=== PATIENT | female | born 1955 | race Caucasian/White ===

== ENCOUNTER 2019-09-09 17:30 | Emergency (ER) | payer BC, SELFPAY ==
--- NOTE | ~2019-09-09 | XR_ITS ---
EXAMINATION: XR chest 2V 09/09/2019 17:47 INDICATION: Status post fall. Left rib pain. PROCEDURE: PA and lateral views of the chest COMPARISON: Comparison to multiple prior studies sequentially, with oldest reviewed study dated 07/13. FINDINGS: The lungs are clear. The cardiomediastinal silhouette is within normal limits. There are no pleural effusions. There is no pneumothorax suspected. IMPRESSION: 1: NO ACUTE CARDIOPULMONARY DISEASE. Reviewed, dictated and finalized at location A. E DRILLER HELPER
--- NOTE | 2019-09-09 17:38 | ED.FALL ---
HPI - Fall General Chief Complaint: Fall Stated Complaint: FALL/RIB PAIN Time Seen by Provider: 09/09/19 17:38 Source: patient and RN notes reviewed Mode of arrival: ambulatory Limitations: no limitations History of Present Illness HPI Narrative: Pt is a 64 y/o female who presents rib pain secondary to a fall. 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 Pt reports pain to her lt ribs, She states that she has a H/O asthma and she gets pain to her posterior ribs when she takes a deep breath. Pt takes ASA 81mg daily. She denies any anticoagulants, other injuries, and mentions she has enough pain medicines at home MD complaint: fall Onset (ago): hour(s) (this morning) Fall from: standing Place fall occurred: home Context: tripped/slipped Location of injury: other (lt ribs) Associated symptoms (after fall): denies Related Data Home Medications Medication Instructions Recorded Confirmed albuterol sulfate 90 mcg/actuation 1 inhalation INHALATION Q4H 06/24/19 09/09/19 aerosol inhaler alprazolam 0.25 mg tablet 0.25 mg PO TID 06/24/19 calcium carbonate 500 mg calcium 500 mg PO DAILY 06/24/19 (1,250 mg) tablet furosemide 20 mg tablet 20 mg PO QAM 06/24/19 lorazepam 0.5 mg tablet 0.5 mg PO TID PRN tablet 06/24/19 melatonin 5 mg tablet 5 mg PO DAILY tablet 06/24/19 metformin 500 mg tablet,extended 1,000 mg PO QPM tablet 06/24/19 release 24 hr montelukast 10 mg tablet 10 mg PO DAILY 06/24/19 omeprazole 20 mg capsule,delayed 20 mg PO DAILY 06/24/19 release ondansetron HCl 4 mg tablet 4 mg PO Q8H 06/24/19 oxycodone 5 mg tablet 5 mg PO Q4H PRN 06/24/19 trazodone 150 mg tablet 150 mg PO .QHS tablet 06/24/19 venlafaxine 150 mg 150 mg PO DAILY 06/24/19 capsule,extended release 24 hr zolpidem 5 mg tablet 5 mg PO ONCE 11/14/19 Allergies Allergy/AdvReac Type Severity Reaction Status Date / Time vancomycin Allergy Severe kidney Unverified 09/09/19 17:41 failure Quinolones Allergy Mild Unknown Verified 09/09/19 17:41 adhesive Allergy Unknown skin Verified 09/09/19 17:41 irritation levofloxacin Allergy Unknown shortness Verified 09/09/19 17:41 of breath Sulfa (Sulfonamide Allergy Unknown Hallucinati Verified 09/09/19 17:41 Antibiotics) ons Review of Systems Review of Systems: Narrative: General/Constitutional: No weight loss,fever Eyes: N0: Redness,discharge Ears/Nose/Throat: No: Epistaxis,ear discharge Respiratory: Denies: Hemoptysis Gastrointestinal: No Vomiting, Bleeding-rectal Skin: No Lumps, eruption Neurologic: No Focal Weakness,Sz Hematologic: Denies: Petechiae/Purpura Psychiatric: No: Suicida ideationl All Other Systems: Reviewed and Negative [facility] [place] Past Medical History Medical History (Updated 09/09/19 @ 18:26 by Ramana Guerra MD) Benign colon polyp Family History Family History (Updated 12/29/18 @ 08:30 by DOCTOR UNKNOWN) Grandparent Diabetes mellitus, Onset Age: 83 Hypertension Acute myocardial infarction, Onset Age: 80 Family history of malignant neoplasm Mother Hypertension, Onset Age: 79 Family history of diabetes mellitus in first degree relative Diabetes mellitus, Onset Age: 79 Family history of Alzheimer's disease, Onset Age: 79 Sibling Hypertension Patient's brother is Father Cerebrovascular accident Social History Social History Smoking status: Never smoker Second hand tobacco smoke exposure: No Alcohol intake: never Comments At time of signature, agree with nursing past medical, surgical, social and family history. There is no relevant family history pertinent to the presenting complaint Exam Narrative: Exam Narrative: General Appearance: Well appearing, No distress EYE: PERRLA, Conjunctiva clear Ears: External ear normal N
[2019-09-09 18:00] VITALS: BP 135/78; PULSE 95; RESP 16; TEMP 36.4; O2SAT 98
== END 2019-09-09 18:29 | disposition home or self-care (01) ==
PROVIDERS: Emergency Provider Emergency Medicine; PCP Family Medicine
DX: R07.89 Other chest pain (principal); J45.909 Unspecified asthma, uncomplicated; W19.XXXA Unspecified fall, initial encounter; Z79.82 Long term (current) use of aspirin
CPT/HCPCS: 71046; 99213; G0463

== ENCOUNTER 2020-08-08 15:08 | Outpatient (CLI) | payer BC, SELFPAY ==
--- NOTE | ~2020-08-08 | XR_ITS ---
XR chest 2V DATE: 08/08/2020 15:25 INDICATION: Cough. Covid infection 1 month ago. Hypertension history. TECHNIQUE: PA and lateral views COMPARISON: 09/09/2019 PA and lateral chest FINDINGS: Normal heart size. Aortic arch calcification. No hilar or mediastinal enlargement. No pulmonary infiltrate or consolidation, pleural effusion or pulmonary vascular congestion or pneumo thorax. IMPRESSION: No active cardiopulmonary disease Reviewed, dictated and finalized at location A. ACER OPERATOR
== END 2020-08-08 15:09 | disposition home or self-care (01) ==
PROVIDERS: PCP Family Medicine; Visit Provider Family Medicine
DX: Z09 Encounter for follow-up examination after completed treatment for conditions other than malignant neoplasm (principal); U07.1 COVID-19; R05 Cough; I70.0 Atherosclerosis of aorta
CPT/HCPCS: 71046

== ENCOUNTER 2020-11-26 11:58 | Emergency (ER) | payer BC, SELFPAY ==
[2020-11-26 12:22] VITALS: BP 163/87; PULSE 88; RESP 16; TEMP 36.7; O2SAT 98
[2020-11-26 12:32] VITALS: BP 163/87; PULSE 88; RESP 16; TEMP 36.7; O2SAT 98
--- NOTE | 2020-11-26 12:51 | ED.URI ---
HPI - URI/Sore Throat General Chief Complaint: Upper Respiratory Infection Stated Complaint: sinus issues/tightness in chest/cough/sore throat Time Seen by Provider: 11/26/20 12:38 Source: patient and RN notes reviewed Mode of arrival: ambulatory Limitations: no limitations History of Present Illness HPI Narrative: Patient presents today with a 5-day history of, nasal congestion and sinus pressure, bilateral ear pain, sore throat, headache, intermittent productive cough, intermittent shortness of breath. History of asthma and diabetes. She has been taking Mucinex and Tylenol without relief. History of COVID-19 in July. She has been Covid vaccinated since October. MD elicited complaint: cough, sore throat, nasal congestion and sinus pain Related Data Home Medications Medication Instructions Recorded Confirmed calcium carbonate 500 mg calcium 500 mg PO DAILY 06/24/19 11/26/20 (1,250 mg) tablet melatonin 5 mg tablet 5 mg PO DAILY tablet 06/24/19 11/26/20 omeprazole 20 mg capsule,delayed 20 mg PO DAILY 06/24/19 11/26/20 release carvedilol 12.5 mg tablet 12.5 mg PO Q12H 02/18/20 11/26/20 pravastatin 40 mg tablet 40 mg PO DAILY 08/16/20 11/26/20 Lactobacillus rhamnosus GG 1 cap PO DAILY 11/26/20 11/26/20 [Culturelle] ascorbic acid (vitamin C) 1 g PO DAILY 11/26/20 11/26/20 cholecalciferol (vitamin D3) 100 mcg PO DAILY 11/26/20 11/26/20 [Vitamin D3] magnesium 100 mg PO USEASDIRECTD 11/26/20 11/26/20 metformin 1,500 mg PO HS 11/26/20 11/26/20 mirabegron [Myrbetriq] 50 mg PO HS 11/26/20 11/26/20 Allergies Allergy/AdvReac Type Severity Reaction Status Date / Time vancomycin Allergy Severe kidney Unverified 09/09/19 17:41 failure Quinolones Allergy Mild Unknown Verified 09/09/19 17:41 adhesive Allergy Unknown skin Verified 09/09/19 17:41 irritation levofloxacin Allergy Unknown shortness Verified 09/09/19 17:41 of breath Sulfa (Sulfonamide Allergy Unknown Hallucinati Verified 09/09/19 17:41 Antibiotics) ons Review of Systems Review of Systems: Narrative: CONSTITUTIONAL: Denies body aches, fever, chills, or sweats. EYES: Denies visual changes, redness, or discharge. ENT: Denies rhinorrhea. + Congestion, sinus pressure bilateral ear pain, sore throat CARDIOVASCULAR: Denies chest pain, palpitations, or edema. RESPIRATORY: + Cough, shortness of breath GASTROINTESTINAL: Denies abdominal pain, nausea, vomiting, or diarrhea. GENITOURINARY: Denies dysuria or hematuria. SKIN: Denies rash, itching, or wounds. MUSCULOSKELETAL: Denies back pain, joint pain, or myalgia. NEUROLOGIC: Denies numbness, tingling, or weakness. + Headache PSYCH: Denies depression or anxiety. [facility] Past Medical History Medical History Benign colon polyp BMI 31.0-31.9,adult Body mass index (bmi) 28.0-28.9, adult (12/29/18) COVID-19 (~07/12/20) Exposure to COVID-19 virus Overactive bladder Sore throat Family History Family History Grandparent Diabetes mellitus, Onset Age: 83 Hypertension Acute myocardial infarction, Onset Age: 80 Family history of malignant neoplasm Mother Hypertension, Onset Age: 79 Family history of diabetes mellitus in first degree relative Diabetes mellitus, Onset Age: 79 Family history of Alzheimer's disease, Onset Age: 79 Sibling Hypertension Patient's brother is Father Cerebrovascular accident Social History Social History Smoking status: Never smoker Second hand tobacco smoke exposure: No Alcohol intake: never Comments At time of signature, I have reviewed and agree with nursing past medical, surgical, social and family history unless otherwise noted. Please see nursing chart for further information. There is no relevant family history pertinent to the presentin
== END 2020-11-26 12:57 | disposition home or self-care (01) ==
PROVIDERS: Emergency Provider Nurse Practitioner; PCP Family Medicine
DX: J40 Bronchitis, not specified as acute or chronic (principal); J01.90 Acute sinusitis, unspecified; Z86.16 Personal history of COVID-19; J45.909 Unspecified asthma, uncomplicated; E11.9 Type 2 diabetes mellitus without complications
CPT/HCPCS: 99213; G0463

== ENCOUNTER 2021-02-20 11:00 | Outpatient (CLI) | payer BC, SELFPAY ==
--- NOTE | 2021-03-11 18:49 | WPDHOMESLEEP ---
Sleep Study - Home Unattended Date of Study: 02/20/21 Ordering Provider: William Young MD Interpreting Provider: Angelina Callahan MD Home Sleep Study Type: Apnea Link Air Height: 1.65 m Weight: 87.09 kg Body Mass Index: 31.9 Neck Circumference (inches): 12.75 Reason for Sleep Study hypersomnolence Sleep History Marielena Rose is a 66 year old female with frequent awakenings through the night associated with leg spasms. She has a lack of overall sleep. When she wakes at night she is not able to return to sleep easily. She has used Trazodone and melatonin for years, stopped Trazodone a year ago. She has been using amitriptyline for the last month which helped her sleep but she feels tired in the morning. She occasionally awakens from sleep feeling short of breath and occasionally awakens at night with heartburn, belching or coughing. She frequently snores. She never snores loudly enough that others complain about it. She occasionally has trouble sleeping with a cold. She rarely wakes up gasping for breath at night. She occasionally has breathing problems at night observed by others. She frequently sweats excessively at night, occasionally notices her heart pounding or beating irregularly at night, rarely falls asleep during the day, rarely falls asleep involuntarily and never falls asleep while driving. She does not have loss of muscle tone was strong emotion. She does not have daytime difficulties due to excessive sleepiness. She rarely feels paralyzed on waking or falling asleep. She occasionally has vivid dreamlike scenes upon awakening or falling asleep. She is really afraid to go to sleep. She frequently has nightmares. She frequently remembers her dreams and frequently has racing thoughts. She occasionally feels sad or depressed. She frequently has anxiety, frequently has muscular tension and frequently notices parts her body jerking. She occasionally kicks at night. She frequently has crawling and aching feelings in her legs and leg pain at night. She frequently has morning jaw pain. She occasionally grinds her teeth during sleep. She constantly is bothered by pain during the day, awakened by pain at night, constantly wakes up feeling stiff in the morning with sore achy muscles and pain in the neck and spine. She has bowel disturbances, fatigue, memory problems, concentration difficulties, and she takes antacids regularly. Normal bedtime is 8:30 p.m., and the amount of time it takes to fall asleep varies. She typically wakes up 4 times at night to use the bathroom and has difficulty returning to sleep. Sometimes without sedatives that may take hours for her return to sleep. She denies taking naps in the afternoon or evening. Short naps are not refreshing. She is drowsy for 2 hours after waking. Habits: Never smoked tobacco. Caffeine 2 per day. No alcohol or recreational drugs. [facility] Past Medical History Medical History Benign colon polyp BMI 31.0-31.9,adult Body mass index (bmi) 28.0-28.9, adult (12/29/18) COVID-19 (~07/12/20) Exposure to COVID-19 virus Hypersomnia Insomnia Overactive bladder Sore throat Family History Family History Grandparent Diabetes mellitus, Onset Age: 83 Hypertension Acute myocardial infarction, Onset Age: 80 Family history of malignant neoplasm Mother Hypertension, Onset Age: 79 Family history of diabetes mellitus in first degree relative Diabetes mellitus, Onset Age: 79 Family history of Alzheimer's disease, Onset Age: 79 Sibling Hypertension Patient's brother is Father Cerebrovascular accident Social History Social History Smoking status: Never smoker Second hand tobacco smoke exposure: No Alcohol intake: never Medications Home Medications Me
[2021-03-11 18:59] VITALS: BMI 31.9
== END 2021-02-21 11:22 | disposition home or self-care (01) ==
LOC: ANHCSM 11:07
PROVIDERS: PCP Family Medicine; Visit Provider Family Medicine
DX: G47.10 Hypersomnia, unspecified (principal); G47.33 Obstructive sleep apnea (adult) (pediatric); G25.81 Restless legs syndrome
CPT/HCPCS: 95806

== ENCOUNTER 2022-10-13 12:54 | Emergency (ER) | payer MEDICARE, SELFPAY ==
[2022-10-13 13:09] VITALS: BP 133/82; PULSE 82; RESP 16; TEMP 36.3; O2SAT 99
--- NOTE | 2022-10-13 13:09 | ED.URI ---
HPI - URI/Sore Throat General Chief Complaint: Upper Respiratory Infection Stated Complaint: sore throat,ear aches Time Seen by Provider: 10/13/22 13:12 Source: patient and RN notes reviewed Mode of arrival: ambulatory Limitations: no limitations History of Present Illness HPI Narrative: 67-year-old female with history of leukemia presents with concern for sore throat, nasal congestion, sinus pain, earaches. Reports symptoms started about 2 weeks ago. She reports she has taken [id number] DayQuil and NyQuil with little relief. She denies fever, shortness breath, trauma swelling. MD elicited complaint: cough, sore throat and nasal congestion Related Data Home Medications Medication Instructions Recorded Confirmed calcium carbonate 500 mg calcium 500 mg PO DAILY 06/24/19 10/13/22 (1,250 mg) tablet melatonin 5 mg tablet 5 mg PO DAILY 06/24/19 10/13/22 omeprazole 20 mg capsule,delayed 20 mg PO DAILY 06/24/19 10/13/22 release carvedilol 12.5 mg tablet 12.5 mg PO Q12H 02/18/20 10/13/22 pravastatin 40 mg tablet 40 mg PO DAILY 08/16/20 10/13/22 Lactobacillus rhamnosus GG 10 1 cap PO DAILY 11/26/20 10/13/22 billion cell capsule (Culturelle) ascorbic acid (vitamin C) 1,000 mg 1 g PO DAILY 11/26/20 10/13/22 tablet magnesium 100 mg tablet 100 mg PO USEASDIRECTD 11/26/20 10/13/22 Medical cannabis See Rx Instructions .Route .COMPLEX 05/15/21 10/13/22 cholecalciferol (vitamin D3) 50 2,000 unit PO DAILY 05/15/21 10/13/22 mcg (2,000 unit) capsule lisinopril 10 mg tablet 10 mg PO DAILY 05/15/21 10/13/22 cyanocobalamin (vitamin B-12) 1,000 mcg PO DAILY 10/17/21 10/13/22 1,000 mcg tablet Allergies Allergy/AdvReac Type Severity Reaction Status Date / Time vancomycin Allergy Severe kidney Unverified 10/13/22 13:05 failure Quinolones Allergy Mild Unknown Verified 10/13/22 13:05 adhesive Allergy Unknown skin Verified 10/13/22 13:05 irritation levofloxacin Allergy Unknown shortness Verified 10/13/22 13:05 of breath Sulfa (Sulfonamide Allergy Unknown Hallucinati Verified 10/13/22 13:05 Antibiotics) ons Review of Systems Review of Systems: CONSTITUTIONAL: Denies malaise, chills, sweats, or fever. EYES: Denies visual changes, redness, or discharge. ENT: Reports rhinorrhea, congestion, sinus pain, otalgia and sore throat. CARDIOVASCULAR: Denies chest pain, palpitations, or edema. RESPIRATORY: Reports cough. Denies dyspnea. GASTROINTESTINAL: Denies abdominal pain, nausea, vomiting, diarrhea SKIN: Denies rash or itching. MUSCULOSKELETAL: Denies myalgia. NEUROLOGIC: Denies headache. All systems reviewed & are unremarkable except as noted in HPI and below PMFSH Past Medical History Medical History (Updated 10/13/22 @ 13:32 by Kirstin Osman NP) Benign colon polyp BMI 31.0-31.9,adult Body mass index (bmi) 28.0-28.9, adult (12/29/18) Breast cancer screening by mammogram normal mammogram on 06/18/2021. Normal mammogram 08/29/2022. Chronic pain fibromyalgia pain COVID-19 (~07/12/20) COVID-19 (~01/2022) 2nd episode, fully vaccinated Exposure to COVID-19 virus Hypersomnia Insomnia Obesity (BMI 30.0-34.9) Overactive bladder Screening for diabetic retinopathy no diabetic retinopathy or macular edema on 01/02/2022. Sore throat Vitamin B12 deficiency anemia (10/09/21) level low at 277 with goal greater than 400 on 10/09/2021 Family History Family History Grandparent Diabetes mellitus, Onset Age: 83 Hypertension Acute myocardial infarction, Onset Age: 80 Family history of malignant neoplasm Mother Hypertension, Onset Age: 79 Family history of diabetes mellitus in first degree relative Diabetes mellitus, Onset Age: 79 Family history of Alzheimer's disease, Onset Age: 79 Sibling Hypertension Patient's brother is Father Cerebrovascular accident Social History Social History (Reviewed 05/01/22 @
[2022-10-13 13:18] VITALS: BP 133/82; PULSE 82; RESP 16; TEMP 36.3; O2SAT 99
== END 2022-10-13 13:34 | disposition home or self-care (01) ==
PROVIDERS: Emergency Provider Nurse Practitioner; PCP Family Medicine
DX: J01.90 Acute sinusitis, unspecified (principal); E66.9 Obesity, unspecified; Z68.30 Body mass index [BMI] 30.0-30.9, adult; D51.9 Vitamin B12 deficiency anemia, unspecified; Z86.16 Personal history of COVID-19
CPT/HCPCS: 87081; 87880; 99213; G0463

== ENCOUNTER → 2023-03-11 10:33 | Outpatient (CLI) | payer MEDICARE, SELFPAY ==
--- NOTE | ~2023-03-11 | XR_ITS ---
AP view of the pelvis and AP and lateral views of the bilateral hips Clinical history: Pain Findings: No acute fracture or dislocation is seen. Osseous alignment is anatomic. Bilateral hip and SI joint spaces are preserved. Soft tissues are unremarkable. Impression: No significant abnormality is seen. Reviewed, dictated and finalized at location . Impression: No significant abnormality is seen.
== END ==
PROVIDERS: PCP Family Medicine; Visit Provider Family Medicine
DX: M25.551 Pain in right hip (principal); M25.552 Pain in left hip
CPT/HCPCS: 73521

== ENCOUNTER 2023-03-11 11:13 | Outpatient (CLI) | payer MEDICARE, SELFPAY ==
--- NOTE | ~2023-03-11 | CT_ITS ---
EXAMINATION: CT abdomen pelvis w con DATE: 03/11/2023 11:39 INDICATION: Acute left lower quadrant abdominal pain. TECHNIQUE: Computed tomography (CT) of the abdomen and pelvis was performed with 100 mL Omnipaque 350 intravenous contrast. Automated exposure control and iterative reconstruction technique were employe d. The dose-length product was 731.27 mGy-cm. COMPARISON: CT abdomen and pelvis 02/17/2019 FINDINGS: The visualized portions of the lung bases demonstrate mild atelectasis. No pleural effusion . The heart size is normal. No pericardial effusion. There is a chronic calcification with surroundin g low attenuation in right hepatic lobe, likely benign. There is a 7 mm cyst in the liver. There is a n 11 mm cystic lesion in the body of the pancreas, increased from 3 mm on 02/17/19. The spleen, gallbl adder, and adrenal glands are normal. There are cysts in the kidneys measuring up to 2.8 cm on the ri ght. Aortic atherosclerosis is noted. There are scattered diverticula in the colon. There is wall thi ckening of sigmoid colon with fat stranding around a diverticulum, consistent with diverticulitis. Th ere are no dilated loops of bowel. The appendix is normal. There are no pathologically enlarged lymph nodes. There is no free intraperitoneal fluid. There is severe lower lumbar spondylosis. IMPRESSION: 1. Acute sigmoid diverticulitis. No perforation or abscess. 2. 11 mm cystic lesion of the pancreas, worsened from 02/17/19. The differential diagnosis includes ps eudocyst, intraductal papillary mucinous neoplasm (IPMN), mucinous cystic neoplasm (MCN), serous cyst adenoma, and neuroendocrine tumor. Abdomen MRI without and with contrast is recommended in one year. Reviewed, dictated and finalized at location A. IMPRESSION: 1. Acute sigmoid diverticulitis. No perforation or abscess. 2. 11 mm cystic lesion of the pancreas, worsened from 02/17/19. The differential diagnosis includes pseudocyst, intraductal papillary mucinous neoplasm (IPMN), mucinous cystic neoplasm (MCN), serous cystadenoma, and neuroendocrine tumor. Abdomen MRI without and with contrast is recommended in one year.
[2023-03-11 11:33] LABS: Estimated Glomerular Filt Rate 45
== END 2023-03-11 11:14 | disposition home or self-care (01) ==
LOC: ANHIMG 11:15
PROVIDERS: PCP Family Medicine; Visit Provider Family Medicine
DX: K86.2 Cyst of pancreas (principal); K57.32 Diverticulitis of large intestine without perforation or abscess without bleeding
CPT/HCPCS: 73521; 74177; Q9967

== ENCOUNTER 2023-09-22 21:39 | Inpatient (IN) | payer MEDICARE, SELFPAY ==
--- NOTE | ~2023-09-22 | XR_ITS ---
Portable chest x-ray Comparison: 08/08/2020 Clinical History: Fever Findings: There is mild bibasilar haziness. Somewhat amorphous airspace opacities in the right midlu ng. Cardiomediastinal silhouette is stable. Bones and soft tissues are unremarkable. Impression: Hazy/amorphous airspace disease the lung bases and right perihilar region. Correlate for pulmonary ed allen or infection. Reviewed, dictated and finalized at location M. LE CHIP TERRAZZO WORKER Impression: Hazy/amorphous airspace disease the lung bases and right perihilar region. Champ elate for pulmonary edema or infection.
[2023-09-22 21:41] VITALS: BP 145/93; PULSE 140; RESP 16; TEMP 39.2; O2SAT 97
--- NOTE | 2023-09-22 21:45 | ECG_ITS ---
Measurements Intervals [place] Rate: 139 P: 35 CT: 139 QRS: 11 QRSD: 72 T: 56 QT: 304 QTc: 463 Interpretive Statements SINUS TACHYCARDIA MINIMAL ST DEPRESSION [0.025+ mV ST DEPRESSION] ABNORMAL RHYTHM ECG NO PREVIOUS ECG AVAILABLE FOR COMPARISON Electronically Signed On 09-23-2023 14:59:11 PEST CONTROLLER by Hector Abraham M.D.
[2023-09-22 22:06] LABS: Hematocrit 41.9 % (37.0-47.0); Hemoglobin 13.7 g/dL (12.0-15.0); Mean Corpuscular HGB Conc 32.7 g/dl (32-36); Mean Corpuscular Hemoglobin 28.8 pg (26-34); Mean Platelet Volume 9.1 fl (7.4-10.4); Platelet Count Result 182 k/mm3 (150-375); Red Blood Count 4.76 M/mm3 (4.2-5.4); Red Cell Distribution Width 12.9 % (11.5-14.5); White Blood Count 20.7 K/mm3 (4.5-10.0)
[2023-09-22 22:13] LABS: Appearance Urine Clear (Clear); Bacteria Urine None Seen /hpf; Bilirubin Urine Negative (Negative); Blood Urine 2+ (Negative); Color Urine Yellow (Yellow); Glucose Urine UA 3+ mg/dL (Negative); Ketones Urine Trace mg/dL (Negative); Leukocyte Esterase Ur Negative LEU/UL (Negative); Nitrate Urine Negative (Negative); Non Pathogenic Casts 0-2; Protein Urine Negative (Negative); Specific Grav Ur 1.029 (1.001-1.035); Squamous Epithelial Cell Urine None seen /hpf (Few); Urobilinogen Urine 0.2 mg/dL (<2.0); WBC Urine 0-5 /hpf
[2023-09-22 22:17] LABS: Alanine Aminotransferase 58 U/L (6-35); Albumin Level 4.3 g/dL (3.5-5.1); Alkaline Phosphatase 130 U/L (38-126); Anion Gap 8 mmol/L (8-16); Aspartate Amino Transferase 55 U/L (14-36); Bilirubin,Total 0.6 mg/dL (0.2-1.3); Blood Urea Nitrogen 30 mg/dL (7-17); Calcium 9.8 mg/dL (8.4-10.2); Carbon Dioxide 24 mmol/L (22-30); Chloride 102 mmol/L (98-107); Estimated CRCL calculation 55 ml/min; Estimated Glomerular Filt Rate > 60; Glucose 172 mg/dL (65-110); Lipase 77 U/L (23-300); Sodium 134 mmol/L (137-145)
[2023-09-22 22:22] LABS: Add Urine Microscopic? YES
[2023-09-22 22:36] LABS: Lymphocytes Absolute Manual 1.24 K/mm3 (1.1-4.5); Lymphocytes Percent Manual 6 % (18-44); Total Cells Counted 100
[2023-09-22 22:37] LABS: Band Neutrophils Percent 10 % (0-6); Monocytes Absolute Manual 0.82 K/mm3 (0.1-0.90); Monocytes Percent Manual 4 % (3-9); Neutrophils Absolute Manual 18.63 K/mm3 (1.7-7.2); Neutrophils Percent Manual 80 % (46-73); Platelet Estimate Adequate (Adequate)
[2023-09-22 22:38] LABS: Large Platelets Present; Schistocytes None Seen (NORMAL)
[2023-09-22 22:57] VITALS: BP 157/90; PULSE 128; RESP 22; TEMP 39.4; O2SAT 99
[2023-09-22 22:58] VITALS: BP 150/77; PULSE 126
[2023-09-22 23:00] VITALS: BP 139/86; PULSE 137
[2023-09-22 23:02] VITALS: BP 126/74; PULSE 138
--- NOTE | 2023-09-22 23:16 | ECG_ITS ---
Measurements Intervals [place] Rate: 130 P: 39 TN: 154 QRS: 9 QRSD: 73 T: 65 QT: 322 QTc: 474 Interpretive Statements SINUS TACHYCARDIA COMPARED TO ECG 09/22/2023 21:50:12 NO SIGNIFICANT CHANGES Electronically Signed On 09-23-2023 15:01:03 CARDIOPULMONARY TECHNOLOGIST by Hector Abraham M.D.
[2023-09-23] VITALS (16 sets, daily range): BP systolic 96–116; BP diastolic 55–66; PULSE 86–124; RESP 14–22; TEMP 36.2–38.6; O2SAT 93–98; BMI 30.5
[2023-09-23] MEDS: SODIUM CHLORIDE 0.9% IV 2,000 ML 999 ML IV CONT (00:33)
[2023-09-23] MEDS: KETOROLAC 15 MG/ML VIAL (*BKC) IV PUSH (00:33)
[2023-09-23] MEDS: ACETAMINOPHEN 500 MG TABLET 1000 MG PO (00:33)
[2023-09-23 00:47] LABS: Influenza A QL RT-PCR Negative (Negative); Influenza B QL RT-PCR Negative (Negative); RSV RNA, RT-PCR Negative (Negative); SARS-CoV-2 RNA PCR Negative (Negative)
--- NOTE | 2023-09-23 01:35 | ED.GENADULT ---
HPI - General Adult General Chief complaint: Fever Stated complaint: fever, cough, N/V Time Seen by Provider: 09/22/23 23:42 History of Present Illness HPI narrative: This is a 68-year-old female presenting ED with fevers, body aches, nausea vomiting, productive cough and right-sided chest pain for 2 days. Patient has been taking Tylenol with minimal relief. Patient denies sore throat, abdominal pain, urinary symptoms. Related Data Home Medications Medication Instructions Recorded Confirmed calcium carbonate 500 mg calcium 500 mg PO DAILY 06/24/19 05/29/23 (1,250 mg) tablet melatonin 5 mg tablet 5 mg PO DAILY PRN Sleep 06/24/19 09/23/23 omeprazole 20 mg capsule,delayed 20 mg PO DAILY 06/24/19 09/23/23 release carvedilol 12.5 mg tablet 12.5 mg PO Q12H 02/18/20 09/23/23 Lactobacillus rhamnosus GG 10 1 cap PO DAILY 11/26/20 09/23/23 billion cell capsule (Culturelle) ascorbic acid (vitamin C) 1,000 mg 1 g PO DAILY 11/26/20 05/29/23 tablet Medical cannabis See Rx Instructions .Route .COMPLEX 05/15/21 05/29/23 cholecalciferol (vitamin D3) 50 2,000 unit PO DAILY 05/15/21 09/23/23 mcg (2,000 unit) capsule lisinopril 10 mg tablet 10 mg PO DAILY 05/15/21 09/23/23 cyanocobalamin (vitamin B-12) 1,000 mcg PO DAILY 10/17/21 09/23/23 1,000 mcg tablet magnesium oxide 500 mg capsule 500 mg PO DAILY 05/29/23 09/23/23 rosuvastatin 40 mg tablet 40 mg PO DAILY 07/09/23 09/23/23 empagliflozin 25 mg tablet mg 09/23/23 (Jardiance) Allergies Allergy/AdvReac Type Severity Reaction Status Date / Time vancomycin Allergy Severe kidney Verified 09/23/23 01:42 failure Quinolones Allergy Mild Unknown Verified 09/23/23 01:42 adhesive Allergy Unknown skin Verified 09/23/23 01:42 irritation levofloxacin Allergy Unknown shortness Verified 09/23/23 01:42 of breath Sulfa (Sulfonamide Allergy Unknown Hallucinati Verified 09/23/23 01:42 Antibiotics) ons [facility] Past Medical History Medical History Acute abdominal pain in left lower quadrant Acute bronchitis Acute diverticulitis (03/10/23) Acute sigmoid diverticulosis without perforation or abscess on CT of the abdomen and pelvis 03/11/2023. Acute non-recurrent maxillary sinusitis At moderate risk for fall Benign colon polyp BMI 29.0-29.9,adult BMI 30.0-30.9,adult BMI 31.0-31.9,adult Body mass index (bmi) 28.0-28.9, adult (12/29/18) Breast cancer screening by mammogram normal mammogram on 06/18/2021. Normal mammogram 08/29/2022. Normal mammogram 09/11/2023. Chronic hip pain, bilateral X-rays of the hips and pelvis on 03/11/2023 reveals no significant arthritis of the hips. The patient was noted to have severe lower lumbar spondylosis on CT of the abdomen and pelvis which is likely causing her hip pain. Chronic low back pain with bilateral sciatica (~02/2023) acute worsening of bilateral hip pain with x-rays unremarkable of the hips and CT of the abdomen and pelvis revealing severe lower lumbar spondylosis On 03/11/2023. Chronic pain fibromyalgia pain COVID-19 (~07/12/20) COVID-19 (~01/2022) 2nd episode, fully vaccinated Exposure to COVID-19 virus Herpes zoster (~05/30/23) right back Hypersomnia Insomnia Obesity (BMI 30.0-34.9) Overactive bladder Overweight (BMI 25.0-29.9) Pancreatic cyst (02/17/19) 3 mm cystic lesion in the body of the pancreas 02/17/2019, increased to [address] of the abdomen and pelvis on 03/11/2023. Recheck with MRI with and without contrast in 1 year. Screening for diabetic retinopathy no diabetic retinopathy or macular edema on 01/02/2022. No retinopathy 11/27/2022. Sore throat Vitamin B12 deficiency anemia (10/09/21) level low at 277 with goal greater than 400 on 10/09/2021. Hemoglobin 13.8 on 12/25/2022. Family History Family History Grandparent Diabetes mellitus, Onset Age: 83 Hypertension Acute myocardial infar
[2023-09-23 03:18] LABS: Lactic Acid Reflex 0.8 mmol/L (0.7-2.0)
--- NOTE | 2023-09-23 03:19 | PC.NURSE ---
This patient, Marielena Rose, was admitted to -. Patient/family oriented to hospital policies and general routines including ID bracelet, bed and alarms, visiting hours, pain management, procedures, bathroom and other care routines, personal items, smoking policy, room service/diet, and visiting hours. Information on how to activate the Rapid Response Team has been discussed. Patient/Family are encouraged to report perceived risks to care and to ask questions if they do not understand what they are told or what they should do.
[2023-09-23] MEDS: AZITHROMYCIN 500 MG/NS 250 ML 500 MG/250 ML BAG 250 MG IVPB ×2 (03:56→20:40)
[2023-09-23] MEDS: SODIUM CHLORIDE 0.9% IV 1,000 ML 999 ML IV CONT (03:56)
[2023-09-23] MEDS: ONDANSETRON INJ 4 MG/2 ML VIAL IV PUSH (04:12)
[2023-09-23 08:49] LABS: Hematocrit 38.6 % (37.0-47.0); Hemoglobin 12.4 g/dL (12.0-15.0); Mean Corpuscular HGB Conc 32.1 g/dl (32-36); Mean Corpuscular Hemoglobin 28.8 pg (26-34); Mean Corpuscular Volume 89.6 fl (80-100); Mean Platelet Volume 9.3 fl (7.4-10.4); Platelet Count Result 182 k/mm3 (150-375); Red Blood Count 4.31 M/mm3 (4.2-5.4); Red Cell Distribution Width 13.2 % (11.5-14.5)
[2023-09-23 08:52] LABS: Alanine Aminotransferase 121 U/L (6-35); Albumin Level 3.8 g/dL (3.5-5.1); Alkaline Phosphatase 117 U/L (38-126); Anion Gap 9 mmol/L (8-16); Aspartate Amino Transferase 163 U/L (14-36); Bilirubin,Total 0.6 mg/dL (0.2-1.3); Blood Urea Nitrogen 23 mg/dL (7-17); Calcium 8.6 mg/dL (8.4-10.2); Carbon Dioxide 24 mmol/L (22-30); Chloride 104 mmol/L (98-107); Estimated CRCL calculation 57 ml/min; Estimated Glomerular Filt Rate > 60; Glucose 139 mg/dL (65-110); Potassium 4.2 mmol/L (3.4-5.0); Sodium 137 mmol/L (137-145)
--- NOTE | 2023-09-23 10:25 | PM.IMHP ---
H&P: [facility] History of Present Illness Date/Time: 09/23/23 0955 Chief Complaint: Pneumonia Narrative: 68 year old female with PMHx of Hypertension, Diabetes type 2, Lymphoblastic leukemia, fibromyalgia and chemo induced neuropathy. She presented to ED with fevers, back ache, head ache, nausea and vomiting. She expressed a productive cough and right sided chest pain. She stated she was at a [employer] day constitution party when she started not feeling well. She then went home and began to vomit. She stated that she has been taking tylenol for this pain and it has given her some relief. She denies shortness of breath at time of assessment. ED work up significant for WBC 20.7, tachycardia, Chest x-ray impression noted infiltrates in the right lower lobe which corresponds to location of patient's expressed pain. She was started on IV abx Azithromycin and Rocephin and admitted for further monitoring. Will resume home medications as appropriate. Her is at bedside. All questions were answered to patient satisfaction. Review of Systems Review of Systems: All systems reviewed & are unremarkable except as noted in HPI and below [facility] Past Medical History Medical History (Updated 09/23/23 @ 11:05 by Stephanie Herndon APRN) Acute abdominal pain in left lower quadrant Acute bronchitis Acute diverticulitis (03/10/23) Acute sigmoid diverticulosis without perforation or abscess on CT of the abdomen and pelvis 03/11/2023. Acute non-recurrent maxillary sinusitis At moderate risk for fall Benign colon polyp BMI 29.0-29.9,adult BMI 30.0-30.9,adult BMI 31.0-31.9,adult Body mass index (bmi) 28.0-28.9, adult (12/29/18) Breast cancer screening by mammogram normal mammogram on 06/18/2021. Normal mammogram 08/29/2022. Normal mammogram 09/11/2023. Chronic hip pain, bilateral X-rays of the hips and pelvis on 03/11/2023 reveals no significant arthritis of the hips. The patient was noted to have severe lower lumbar spondylosis on CT of the abdomen and pelvis which is likely causing her hip pain. Chronic low back pain with bilateral sciatica (~02/2023) acute worsening of bilateral hip pain with x-rays unremarkable of the hips and CT of the abdomen and pelvis revealing severe lower lumbar spondylosis On 03/11/2023. 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 Recheck with MRI with and without contrast in 1 year. Screening for diabetic retinopathy no diabetic retinopathy or macular edema on 01/02/2022. No retinopathy 11/27/2022. Sore throat Vitamin B12 deficiency anemia (10/09/21) level low at 277 with goal greater than 400 on 10/09/2021. Hemoglobin 13.8 on 12/25/2022. Family History Family History Grandparent Diabetes mellitus, Onset Age: 83 Hypertension Acute myocardial infarction, Onset Age: 80 Family history of malignant neoplasm Mother Hypertension, Onset Age: 79 Family history of diabetes mellitus in first degree relative Diabetes mellitus, Onset Age: 79 Family history of Alzheimer's disease, Onset Age: 79 Sibling Hypertension Patient's brother is Father Cerebrovascular accident Social History Social History Smoking status: Never smoker Second hand tobacco smoke exposure: No Alcohol intake: never Substance use: never Substance use type: does not use Do You Feel Safe in your Home?: Yes Lack of Transportation: No Lack of Food: Never True Current Housing: I Have Housing Concerned About Future Housing
[2023-09-23] MEDS: ACETAMINOPHEN 325 MG TABLET 650 MG PO ×2 (10:30→17:38)
[2023-09-23 10:38] LABS: Band Neutrophils Percent 11 % (0-6); Lymphocytes Absolute Manual 1.44 K/mm3 (1.1-4.5); Lymphocytes Percent Manual 6 % (18-44); Monocytes Percent Manual 5 % (3-9); Neutrophils Absolute Manual 21.36 K/mm3 (1.7-7.2); Neutrophils Percent Manual 78 % (46-73); Total Cells Counted 100
[2023-09-23 10:39] LABS: Platelet Estimate Adequate (Adequate); Schistocytes None Seen (NORMAL)
[2023-09-23 11:21] LABS: Glucose Point of Care 120 mg/dl (65-105)
[2023-09-23] MEDS: SODIUM CHLORIDE 0.9% IV 1,000 ML 100 ML IV CONT (11:47)
[2023-09-23 16:30] LABS: Glucose Point of Care 97 mg/dl (65-105)
[2023-09-23] MEDS: carvediloL 12.5 MG TABLET PO (20:26)
[2023-09-23] MEDS: AMITRIPTYLINE HCL 10 MG TABLET PO (20:26)
[2023-09-23 21:02] LABS: Glucose Point of Care 143 mg/dl (65-105)
[2023-09-23] MEDS: ALBUTEROL SULFATE (*SP) AEROSOL 1 PUFF 2 PUFF INHALATION (23:04)
[2023-09-24] VITALS (11 sets, daily range): BP systolic 112–132; BP diastolic 67–70; PULSE 67–98; RESP 16–18; TEMP 36.3–36.9; O2SAT 94–100
[2023-09-24 06:34] LABS: Hematocrit 34.9 % (37.0-47.0); Hemoglobin 11.1 g/dL (12.0-15.0); Mean Corpuscular HGB Conc 31.8 g/dl (32-36); Mean Corpuscular Volume 91.1 fl (80-100); Mean Platelet Volume 9.3 fl (7.4-10.4); Platelet Count Result 140 k/mm3 (150-375); Red Blood Count 3.83 M/mm3 (4.2-5.4); Red Cell Distribution Width 13.4 % (11.5-14.5)
[2023-09-24 06:47] LABS: Alanine Aminotransferase 154 U/L (6-35); Albumin Level 3.3 g/dL (3.5-5.1); Alkaline Phosphatase 135 U/L (38-126); Anion Gap 5 mmol/L (8-16); Aspartate Amino Transferase 106 U/L (14-36); Bilirubin,Total 0.5 mg/dL (0.2-1.3); Blood Urea Nitrogen 18 mg/dL (7-17); Carbon Dioxide 25 mmol/L (22-30); Chloride 107 mmol/L (98-107); Estimated CRCL calculation 63 ml/min; Estimated Glomerular Filt Rate > 60; Glucose 114 mg/dL (65-110); Sodium 137 mmol/L (137-145)
[2023-09-24 06:51] LABS: Potassium 3.7 mmol/L (3.4-5.0)
[2023-09-24 07:50] LABS: Glucose Point of Care 99 mg/dl (65-105)
[2023-09-24] MEDS: CYANOCOBALAMIN 1,000 MCG TABLET 1000 MCG PO (08:14)
[2023-09-24] MEDS: CALCIUM CARBONATE (OSCAL) 500 MG TABLET PO (08:15)
[2023-09-24] MEDS: PANTOPRAZOLE 40 MG TABLET PO (08:15)
[2023-09-24] MEDS: CHOLECALCIFEROL 1,000 UNITS TABLET 2000 UNITS PO (08:15)
[2023-09-24] MEDS: lisinopriL 10 MG TABLET PO (08:18)
[2023-09-24] MEDS: carvediloL 12.5 MG TABLET PO ×2 (08:27→21:14)
[2023-09-24] MEDS: ACIDOPHILUS/BULGARICUS CHEWABLE TABLET 1 TABLET PO (08:28)
[2023-09-24] MEDS: ACETAMINOPHEN 325 MG TABLET 650 MG PO (09:00)
[2023-09-24] MEDS: PYRIDOXINE HCL 50 MG TABLET 100 MG PO (09:43)
[2023-09-24 11:40] LABS: Glucose Point of Care 170 mg/dl (65-105)
[2023-09-24] MEDS: KETOROLAC 30 MG/ML VIAL (*BKC) IV PUSH (12:41)
--- NOTE | 2023-09-24 14:24 | P.PNIM_ITS ---
Progress Note: A&P Assessment and Plan (1) Pneumonia: Code(s): J18.9 - Pneumonia, unspecified organism Status: Acute Assessment and Plan: * Presented with cough- productive, fever, body ache, nausea and vomiting. * Chest X-ray impression notes hazy/amorphous airspace disease the lung bases and right perihilar region. Correlate for pulmonary edema or infection * IV abx stated in ED: Azithromycin and Rocephin * Blood cultures no growth to date * IV fluids NS for hydration. (2) Nausea & vomiting: Code(s): R11.2 - Nausea with vomiting, unspecified Status: Acute Assessment and Plan: * Presented with nausea and vomiting in ED * Zofran PRN (3) Type 2 diabetes mellitus without complication, without long-term current use of insulin: Code(s): E11.9 - Type 2 diabetes mellitus without complications Status: Acute Assessment and Plan: * Hx of DM type 2. * BS in ED 172 * Continue Empagliflozin * Accu checks ACHS * SSI regimen * Hypoglycemia protocol (4) Essential (primary) hypertension: Code(s): I10 - Essential (primary) hypertension Status: Acute Assessment and Plan: * Continue home blood pressure medications * Continue to monitor Subjective Date/time seen: 09/24/23 14:24 Interval history: Patient doing much better today. She is feeling overall very weak but getting around her room okay. She does have some shortness of breath at rest as well as with exertion. She continues to have cough. She denies chest pain, nausea, vomiting, dysuria or abdominal pain. Patient's white blood cell count is improving. Exam Narrative: GENERAL: Comfortable, no acute distress HENMT: moist mucous membranes EYES: EOM intact b/l NECK: no lymphadenopathy RESPIRATORY: clear to auscultation CARDIO: RRR GI: soft, nontender, bowel sounds present SKIN: no rashes EXTREMITIES: no edema, redness or tenderness Objective Data Vital Signs Vital Signs: Vital Signs - 24 hr 09/23/23 16:00 09/23/23 19:24 09/23/23 20:26 Temperature Pulse Rate 94 97 Respiratory Rate Blood Pressure Pulse Oximetry 96 Oxygen Delivery Room Air 09/23/23 22:00 09/24/23 00:00 09/23/23 20:00 Temperature 97.1 F L Pulse Rate 86 80 88 Respiratory Rate 16 Blood Pressure 115/64 Pulse Oximetry 93 Oxygen Delivery 09/24/23 04:00 09/24/23 06:00 09/24/23 08:27 Temperature 98.4 F Pulse Rate 89 98 98 Respiratory Rate 16 Blood Pressure 126/67 Pulse Oximetry 94 Oxygen Delivery 09/24/23 08:00 09/24/23 08:00 09/24/23 12:00 Temperature Pulse Rate 98 87 Respiratory Rate Blood Pressure Pulse Oximetry Oxygen Delivery Room Air 09/24/23 14:00 Temperature 97.8 F Pulse Rate 74 Respiratory Rate 18 Blood Pressure 112/70 Pulse Oximetry 94 Oxygen Delivery Intake/Output Intake/Output: Intake & Output 09/21/23 09/22/23 09/23/23 09/24/23 23:59 2
--- NOTE | 2023-09-24 14:24 | PM.IMPN ---
Progress Note: A&P Assessment and Plan (1) Pneumonia: Code(s): J18.9 - Pneumonia, unspecified organism Status: Acute Assessment and Plan: Presented with cough- productive, fever, body ache, nausea and vomiting. Chest X-ray impression notes hazy/amorphous airspace disease the lung bases and right perihilar region. Correlate for pulmonary edema or infection IV abx stated in ED: Azithromycin and Rocephin Blood cultures no growth to date IV fluids NS for hydration. (2) Nausea & vomiting: Code(s): R11.2 - Nausea with vomiting, unspecified Status: Acute Assessment and Plan: Presented with nausea and vomiting in ED Zofran PRN (3) Type 2 diabetes mellitus without complication, without long-term current use of insulin: Code(s): E11.9 - Type 2 diabetes mellitus without complications Status: Acute Assessment and Plan: Hx of DM type 2. BS in ED 172 Continue Empagliflozin Accu checks ACHS SSI regimen Hypoglycemia protocol (4) Essential (primary) hypertension: Code(s): I10 - Essential (primary) hypertension Status: Acute Assessment and Plan: Continue home blood pressure medications Continue to monitor Subjective Date/time seen: 09/24/23 14:24 Interval history: Patient doing much better today. She is feeling overall very weak but getting around her room okay. She does have some shortness of breath at rest as well as with exertion. She continues to have cough. She denies chest pain, nausea, vomiting, dysuria or abdominal pain. Patient's white blood cell count is improving. Exam Narrative: GENERAL: Comfortable, no acute distress HENMT: moist mucous membranes EYES: EOM intact b/l NECK: no lymphadenopathy RESPIRATORY: clear to auscultation CARDIO: RRR GI: soft, nontender, bowel sounds present SKIN: no rashes EXTREMITIES: no edema, redness or tenderness Objective Data Vital Signs Vital Signs: Vital Signs - 24 hr 09/23/23 16:00 09/23/23 19:24 09/23/23 20:26 Temperature Pulse Rate 94 97 Respiratory Rate Blood Pressure Pulse Oximetry 96 Oxygen Delivery Room Air 09/23/23 22:00 09/24/23 00:00 09/23/23 20:00 Temperature 97.1 F L Pulse Rate 86 80 88 Respiratory Rate 16 Blood Pressure 115/64 Pulse Oximetry 93 Oxygen Delivery 09/24/23 04:00 09/24/23 06:00 09/24/23 08:27 Temperature 98.4 F Pulse Rate 89 98 98 Respiratory Rate 16 Blood Pressure 126/67 Pulse Oximetry 94 Oxygen Delivery 09/24/23 08:00 09/24/23 08:00 09/24/23 12:00 Temperature Pulse Rate 98 87 Respiratory Rate Blood Pressure Pulse Oximetry Oxygen Delivery Room Air 09/24/23 14:00 Temperature 97.8 F Pulse Rate 74 Respiratory Rate 18 Blood Pressure 112/70 Pulse Oximetry 94 Oxygen Delivery Intake/Output Intake/Output: Intake & Output 09/21/23 09/22/23 09/23/23 09/24/23 23:59 23:59 23:59 23:59 Intake Total 4165 0 Balance 4165 0 Meds/Results Medications: Active Medications Generic Name Dose Route Start Last Admin Trade Name Freq PRN Reason Stop Dose Admin Acetaminophen 650 mg 09/23/23 10:09 09/24/23 09:00 Acetaminophen 325 Mg Tablet PO 650 mg Q4H PRN Administration Mild Pain (1-3) or Fever Albuterol 2 puff 09/23/23 10:34 09/23/23 23:04 Albuterol Sulfate (*Sp) Aerosol 1 Puff INHALATION 2 puff QID PRN Administration shortness of breath or wheezing Amitriptyline HCl 10 mg 09/23/23 21:00 09/23/23 20:26 Amitriptyline Hcl 10 Mg Tablet PO 10 mg QHS PADMINI Administration Calcium Carbonate 500 mg 09/24/23 09:00 09/24/23 08:15 Calcium Carbonate (Oscal) 500 Mg Tablet PO 500 mg DAILY PADMINI Administration Carvedilol 12.5 mg 09/23/23 21:00 09/24/23 08:27 Carvedilol 12.5 Mg Tablet PO 12.5 mg Q12H PADMINI Administration Cyanocobalamin 1,000 mcg 09/24/23 09:00 09/24/23 08:14
[2023-09-24 16:46] LABS: Glucose Point of Care 129 mg/dl (65-105)
[2023-09-24] MEDS: AMITRIPTYLINE HCL 10 MG TABLET PO (21:13)
[2023-09-24] MEDS: MAGNESIUM OXIDE 400 MG TABLET PO (21:15)
[2023-09-24] MEDS: EMPAGLIFLOZIN 25 MG TABLET PO (21:15)
[2023-09-24] MEDS: ROSUVASTATIN 10 MG TABLET PO (21:16)
[2023-09-24] MEDS: AZITHROMYCIN 500 MG/NS 250 ML 500 MG/250 ML BAG 250 MG IVPB (21:16)
[2023-09-24 21:54] LABS: Glucose Point of Care 206 mg/dl (65-105)
[2023-09-24] MEDS: INSULIN ASPART (*BKC) 100 UNITS/ML SUB-Q (22:04)
[2023-09-25] VITALS: PULSE 75
[2023-09-25] MEDS: ACETAMINOPHEN 325 MG TABLET 650 MG PO (00:49)
[2023-09-25 04:00] VITALS: PULSE 71
[2023-09-25 06:00] VITALS: BP 135/64; PULSE 76; RESP 14; TEMP 36.4; O2SAT 98
[2023-09-25 06:15] LABS: Hematocrit 34.9 % (37.0-47.0); Mean Corpuscular HGB Conc 31.5 g/dl (32-36); Mean Corpuscular Hemoglobin 28.7 pg (26-34); Mean Corpuscular Volume 91.1 fl (80-100); Mean Platelet Volume 9.4 fl (7.4-10.4); Platelet Count Result 138 k/mm3 (150-375); Red Blood Count 3.83 M/mm3 (4.2-5.4); Red Cell Distribution Width 13.2 % (11.5-14.5); White Blood Count 7.9 K/mm3 (4.5-10.0)
[2023-09-25 06:31] LABS: Anion Gap 4 mmol/L (8-16); Blood Urea Nitrogen 15 mg/dL (7-17); Calcium 9.2 mg/dL (8.4-10.2); Carbon Dioxide 28 mmol/L (22-30); Chloride 106 mmol/L (98-107); Estimated CRCL calculation 57 ml/min; Estimated Glomerular Filt Rate > 60; Glucose 123 mg/dL (65-110); Potassium 3.8 mmol/L (3.4-5.0); Sodium 138 mmol/L (137-145)
[2023-09-25 07:46] LABS: Glucose Point of Care 131 mg/dl (65-105)
[2023-09-25 08:00] VITALS: PULSE 89
[2023-09-25] MEDS: AZITHROMYCIN 250 MG TABLET 500 MG PO (09:59)
[2023-09-25] MEDS: CYANOCOBALAMIN 1,000 MCG TABLET 1000 MCG PO (10:00)
[2023-09-25] MEDS: CHOLECALCIFEROL 1,000 UNITS TABLET 2000 UNITS PO (10:00)
[2023-09-25] MEDS: PANTOPRAZOLE 40 MG TABLET PO (10:00)
[2023-09-25] MEDS: CALCIUM CARBONATE (OSCAL) 500 MG TABLET PO (10:00)
[2023-09-25] MEDS: lisinopriL 10 MG TABLET PO (10:01)
[2023-09-25] MEDS: ACIDOPHILUS/BULGARICUS CHEWABLE TABLET 1 TABLET PO (10:01)
[2023-09-25] MEDS: PYRIDOXINE HCL 50 MG TABLET 100 MG PO (10:02)
[2023-09-25 10:10] VITALS: PULSE 85
[2023-09-25] MEDS: carvediloL 12.5 MG TABLET PO (10:10)
[2023-09-25] MEDS: AMOXICILLIN/CLAVULANATE K 875-125 MG TAB 1 TABLET PO (11:01)
[2023-09-25 11:27] LABS: Glucose Point of Care 119 mg/dl (65-105)
--- NOTE | 2023-09-25 11:57 | PC.NURSE ---
On 09/25/23, the GUEST SERVICE AIDE, ISHA STILES , provided care and completed [employer] documentation on this patient. I have reviewed the GUEST SERVICE AIDE's documentation and agree with the findings.
--- NOTE | 2023-09-25 13:28 | PM.DS ---
DS: Admitting Diagnosis Discharge Date 09/25/23 Admitting Diagnosis Pneumonia DS: Discharge Diagnosis Discharge Diagnosis (1) Pneumonia: Code(s): J18.9 - Pneumonia, unspecified organism Status: Acute (2) Nausea & vomiting: Code(s): R11.2 - Nausea with vomiting, unspecified Status: Acute (3) Type 2 diabetes mellitus without complication, without long-term current use of insulin: Code(s): E11.9 - Type 2 diabetes mellitus without complications Status: Acute (4) Essential (primary) hypertension: Code(s): I10 - Essential (primary) hypertension Status: Acute DS: Summary Hospital Course Hospital Course: This is a 68-year-old female with past medical history of hypertension, diabetes, lymphoblastic leukemia, fibromyalgia and chemo 2s neuropathy the present to the ED on 09/23/2023 due to fever, headache, nausea vomiting. She had productive cough and right-sided chest pain. X-ray showing impression of infiltrates in the right lower lobe corresponding with pneumonia. She is found have a elevated white blood cell count of 20.7 as well as tachycardia. She was started on IV antibiotics of azithromycin Rocephin for pneumonia. Patient improved over the next couple days. Her white blood cell count returned normal. Patient shortness of breath and cough both improved. She was transitioned to p.o. antibiotics to be continued on antibiotics for 10 days on Augmentin and azithromycin for 5 days. Her labs and vital signs are stable and she is medically cleared for discharge on time. Time Spent with Patient Time attestation: Total time spent providing and/or coordinating discharge services: Exam Narrative: GENERAL: Comfortable, no acute distress HENMT: moist mucous membranes EYES: EOM intact b/l NECK: no lymphadenopathy RESPIRATORY: clear to auscultation CARDIO: RRR GI: soft, nontender, bowel sounds present SKIN: no rashes EXTREMITIES: no edema, redness or tenderness DS: Data Data Completed and Pending Labs on day of discharge: Labs from last 24 hours 09/25/23 09/25/23 09/25/23 11:22 07:40 05:54 WBC 7.9 RBC 3.83 L Hgb 11.0 L Hct 34.9 L MCV 91.1 MCH 28.7 MCHC 31.5 L RDW 13.2 Plt Count 138 L MPV 9.4 Sodium 138 Potassium 3.8 Chloride 106 Carbon Dioxide 28 Anion Gap 4 L BUN 15 Creatinine 0.90 Estim Creat Clear Calc 57 Estimated GFR > 60 Glucose 123 H POC Capillary Glucose 119 H 131 H Calcium 9.2 09/24/23 09/24/23 21:51 16:32 WBC RBC Hgb Hct MCV MCH MCHC RDW Plt Count MPV Sodium Potassium Chloride Carbon Dioxide Anion Gap BUN Creatinine Estim Creat Clear Calc Estimated GFR Glucose POC Capillary Glucose 206 H 129 H Calcium Preliminary micro results at discharge 09/23/23 02:47 Blood Culture - Preliminary Blood 09/23/23 02:47 Blood Culture - Preliminary Blood Discharge Plan Discharge Attending physician on discharge: Nathan Castañeda Consulting providers: Stephanie Herndon Discharging Clinician: Natalie Nichols Patient Disposition: Home, Self-Care Activity: as tolerated Diet: regular Discharge Instructions: Medications: Augmentin twice a day for 7 more days. Next dose tonight. Azithromycin daily for 2 more days. Next dose tomorrow. Discharge disposition: Take medications as prescribed Monitor blood pressures Avoid social areas, you wear a mask when in social settings Encouraged to continue with yearly vaccinations Return to the emergency department if he developed sudden shortness of breath, chest pain, nausea, vomiting, upset stomach or intractable diarrhea Return to the emergency department if you develop fever greater than 100.4 Follow-up with the primary care physician within 1-2 weeks Thank you for [facility] for your healthcare needs Patient Instructions: Antibi
[2023-09-25 14:00] VITALS: BP 130/71; PULSE 88; RESP 18; TEMP 36.3; O2SAT 98
== END 2023-09-25 14:20 | disposition home or self-care (01) | DRG 195 ==
LOC: ANHED 09-23 02:17 → ANH3MEDSUR 09-23 03:28
PROVIDERS: Nurse Practitioner Family; Admitting Provider Internal Medicine; Emergency Provider Emergency Medicine; PCP Family Medicine; Visit Provider Internal Medicine Critical Care Medicine
DX: J18.9 Pneumonia, unspecified organism (principal); E11.9 Type 2 diabetes mellitus without complications; I10 Essential (primary) hypertension; R11.2 Nausea with vomiting, unspecified; M79.7 Fibromyalgia; N32.81 Overactive bladder; D51.9 Vitamin B12 deficiency anemia, unspecified; Z20.822 Contact with and (suspected) exposure to COVID-19; Z86.16 Personal history of COVID-19; E66.9 Obesity, unspecified; Z68.30 Body mass index [BMI] 30.0-30.9, adult; Z85.6 Personal history of leukemia
CPT/HCPCS: 36415; 71045; 80048; 80053; 81001; 82248; 82948; 83605; 83690; 85025; 85027; 87040; 87637; 93005; 94640; 96361; 96374; 99285; A9270; J0456; J0696; J1815; J1885; J2405; J7030

== ENCOUNTER → 2023-10-15 15:40 | Outpatient (CLI) | payer MEDICARE, SELFPAY ==
--- NOTE | ~2023-10-15 | XR_ITS ---
EXAMINATION: XR chest 2V DATE: 10/15/2023 15:54 INDICATION: Pneumonia. TECHNIQUE: Frontal and lateral views of the chest were obtained. COMPARISON: Chest single view 09/23/2023 FINDINGS: There are airspace opacities in anterior segment right upper lobe. No pleural effusion or p neumothorax. The heart size is normal. IMPRESSION: 1. Improved airspace opacities in anterior segment right upper lobe, consistent with pneumonia. Reviewed, dictated and finalized at location E. BER
== END ==
PROVIDERS: PCP Family Medicine; Visit Provider Family Medicine
DX: J18.9 Pneumonia, unspecified organism (principal)
CPT/HCPCS: 71046

== ENCOUNTER → 2024-03-22 11:49 | Outpatient (CLI) | payer MEDICARE, SELFPAY ==
--- NOTE | ~2024-03-22 | XR_ITS ---
EXAMINATION: XR chest 2V DATE: 03/22/2024 12:02 INDICATION: Acute bronchitis, unspecified. TECHNIQUE: Frontal and lateral views of the chest were obtained. COMPARISON: Chest 2 views 10/15/23 FINDINGS: There is no pneumonia, pleural effusion, or pneumothorax. The heart size is normal. IMPRESSION: 1. No acute cardiopulmonary disease. Reviewed, dictated and finalized at location A.
== END ==
PROVIDERS: PCP Family Medicine; Visit Provider Family Medicine
DX: J20.9 Acute bronchitis, unspecified (principal)
CPT/HCPCS: 71046

== ENCOUNTER 2024-05-04 09:55 | Emergency (ER) | payer MEDICARE, SELFPAY ==
--- NOTE | ~2024-05-04 | XR_ITS ---
XR chest 2V Ordering provider: Alyssa Teran PA-C History: 69 years Female with . PAIN TO CHEST, FEVER, VOMITING, HEADACHE . Comparison: None. FINDINGS: MEDIASTINUM: The cardiac silhouette is not enlarged. LUNGS: No effusions or pneumothorax. Opacification the right middle lobe and to a lesser degree Left lower lobe medially. OTHER: No free air under the diaphragm. IMPRESSION: Bibasilar pneumonia more on the right side. Follow-up to resolution is advised to exclude underlying mass. Reviewed, dictated and finalized at location A.
--- NOTE | ~2024-05-04 | CT_ITS ---
CT of the Abdomen and Pelvis: Indication: Right upper quadrant pain Technique: 2.5 mm axial scans were obtained through the abdomen and pelvis following intravenous adm inistration of 100 cc of Omnipaque 350. Dose reduction technique was used on this scan by utilizing a utomated exposure control and iterative reconstruction technique. The dose-length product (DLP) was 7 30.89 mGy-cm. Findings: Scans through the lung bases demonstrate partially imaged right middle lobe consolidation. The liver, spleen, pancreas, gallbladder, adrenals and kidneys are within normal limits. There are at herosclerotic calcifications of the aorta. No lymphadenopathy. No bowel obstruction or bowel wall thickening. There is no evidence to suggest acute appendicitis. Images through the pelvis were performed. Urinary bladder unremarkable. Status post hysterectomy. No pelvic mass seen. No ascites. Impression: Partially imaged right middle lobe pneumonia. Follow-up to radiographic resolution is advised. No other significant findings. Reviewed, dictated and finalized at [facility]. Impression: Partially imaged right middle lobe pneumonia. Follow-up to radiographic resolut ion is advised. No other significant findings.
[2024-05-04 09:59] VITALS: BP 115/62; PULSE 124; RESP 16; TEMP 36.8; O2SAT 95
[2024-05-04 10:30] LABS: Basophils Percent Auto 0.2 % (0.2-1.2); Eosinophils Percent Auto 0.1 % (0-4.4); Hematocrit 42.8 % (37.0-47.0); Hemoglobin 14.3 g/dL (12.0-15.0); Immature Granulocyte Absolute 0.13 K/mm3 (0.00-0.031); Immature Granulocyte Percent A 0.8 % (0-0.5); Lymphocytes Absolute Auto 1.15 K/mm3 (0.9-3.2); Lymphocytes Percent Auto 6.9 % (18.3-44.2); Mean Corpuscular HGB Conc 33.4 g/dl (32-36); Mean Corpuscular Hemoglobin 29.5 pg (26-34); Mean Corpuscular Volume 88.4 fl (80-100); Mean Platelet Volume 9.4 fl (7.4-10.4); Monocytes Percent Auto 6.2 % (2.6-8.5); Neutrophils Absolute Auto 14.3 K/mm3 (1.3-6.7); Neutrophils Percent Auto 85.8 % (45.5-73.1); Platelet Count Result 150 k/mm3 (150-375); Red Blood Count 4.84 M/mm3 (4.2-5.4); White Blood Count 16.7 K/mm3 (4.5-10.0)
[2024-05-04 10:38] LABS: Add Urine Microscopic? YES; Appearance Urine Clear (Clear); Bacteria Urine None Seen /hpf; Bilirubin Urine Negative (Negative); Blood Urine 2+ (Negative); Color Urine Yellow (Yellow); Glucose Urine UA 3+ mg/dL (Negative); Ketones Urine 3+ mg/dL (Negative); Leukocyte Esterase Ur Negative LEU/UL (Negative); Nitrate Urine Negative (Negative); Non Pathogenic Casts 0-2; Protein Urine Negative (Negative); Squamous Epithelial Cell Urine None Seen /hpf (Few); Urobilinogen Urine 0.2 mg/dL (<2.0); WBC Urine 0-5 /hpf (0-3); pH Urine 5.5 (5.0-9.0)
[2024-05-04 10:39] LABS: Alanine Aminotransferase 295 U/L (6-35); Albumin Level 4.6 g/dL (3.5-5.1); Alkaline Phosphatase 109 U/L (38-126); Anion Gap 12 mmol/L (4-12); Aspartate Amino Transferase 292 U/L (14-36); Bilirubin,Total 1.3 mg/dL (0.2-1.3); Blood Urea Nitrogen 23 mg/dL (7-17); Calcium 9.7 mg/dL (8.4-10.2); Carbon Dioxide 25 mmol/L (22-30); Chloride 99 mmol/L (98-107); Estimated CRCL calculation 42 ml/min; Estimated Glomerular Filt Rate 45; Glucose 153 mg/dL (65-110); Lipase 42 U/L (23-300); Potassium 3.8 mmol/L (3.4-5.0); Sodium 136 mmol/L (137-145)
[2024-05-04 11:06] LABS: Influenza A QL RT-PCR Negative (Negative); Influenza B QL RT-PCR Negative (Negative); RSV RNA, RT-PCR Negative (Negative); SARS-CoV-2 RNA PCR Negative (Negative)
[2024-05-04] MEDS: KETOROLAC 15 MG/ML VIAL (*BKC) IV PUSH (12:04)
[2024-05-04] MEDS: SODIUM CHLORIDE 0.9% IV 2,500 ML 999 ML IV CONT (12:22)
[2024-05-04 12:30] VITALS: BP 109/63; PULSE 105; RESP 16; O2SAT 100
--- NOTE | 2024-05-04 12:48 | ECG_ITS ---
Test Date: 2024-05-04 13:37:52 Measurements Intervals [place] Rate: 105 P: 42 MT: 161 QRS: 23 QRSD: 80 T: 76 QT: 307 QTc: 406 Interpretive Statements SINUS TACHYCARDIA NONSPECIFIC T-WAVE ABNORMALITY- HIGH LATERAL LEADS BASELINE ARTIFACT- I, III, AVR, AVL BORDERLINE ECG No previous ECG available for comparison Electronically Signed On 05-04-2024 13:50:42 CDT by Jimbo Diallo D.O.
[2024-05-04 14:13] VITALS: BP 113/67; PULSE 103; RESP 15; O2SAT 95
--- NOTE | 2024-05-04 14:49 | ED.GENADULT ---
HPI - General Adult General Chief complaint: Abdominal Pain Stated complaint: headache, fever Time Seen by Provider: 05/04/24 11:35 History of Present Illness HPI narrative: This is a 61-year-old female presenting with flu-like symptoms. Symptoms started yesterday around 330. They include headache body aches and fevers. She also has an achy pain in her lower right chest/upper abdomen. She has had fevers up to 101.9. She feels short of breath on exertion. She denies nausea vomiting or diarrhea. Related Data Home Medications Medication Instructions Recorded Confirmed calcium carbonate 500 mg PO DAILY 06/24/19 12/09/23 melatonin 5 mg tablet 5 mg PO DAILY PRN Sleep 06/24/19 12/09/23 carvedilol 12.5 mg tablet 12.5 mg PO Q12H 02/18/20 12/09/23 Lactobacillus rhamnosus GG 10 1 cap PO DAILY 11/26/20 12/09/23 billion cell capsule (Culturelle) cholecalciferol (vitamin D3) 50 2,000 unit PO DAILY 05/15/21 12/09/23 mcg (2,000 unit) capsule lisinopril 10 mg tablet 10 mg PO DAILY 05/15/21 12/09/23 magnesium oxide 500 mg capsule 500 mg PO DAILY 05/29/23 12/09/23 rosuvastatin 40 mg tablet 10 mg PO HS 07/09/23 12/09/23 omeprazole 20 mg tablet,delayed 20 mg PO DAILY 09/23/23 12/09/23 release pyridoxine (vitamin B6) 100 mg 100 mg PO DAILY 09/23/23 12/09/23 tablet cyanocobalamin (vitamin B-12) 1,000 mcg PO . every other day 12/09/23 12/09/23 1,000 mcg tablet Allergies Allergy/AdvReac Type Severity Reaction Status Date / Time vancomycin Allergy Severe kidney Verified 05/04/24 12:08 failure Quinolones Allergy Mild Unknown Verified 05/04/24 12:08 adhesive Allergy Unknown skin Verified 05/04/24 12:08 irritation levofloxacin Allergy Unknown shortness Verified 05/04/24 12:08 of breath Sulfa (Sulfonamide Allergy Unknown Hallucinati Verified 05/04/24 12:08 Antibiotics) [facility] Past Medical History Medical History Acute bronchitis Normal chest x-ray 03/22/2024. Acute diverticulitis (03/10/23) Acute sigmoid diverticulosis without perforation or abscess on CT of the abdomen and pelvis 03/11/2023. Acute non-recurrent maxillary sinusitis At low risk for fall At moderate risk for fall B-cell lymphoblastic leukemia/lymphoma Benign colon polyp BMI 29.0-29.9,adult BMI 30.0-30.9,adult BMI 31.0-31.9,adult Body mass index (bmi) 28.0-28.9, adult (12/29/18) Breast cancer screening by mammogram normal mammogram on 06/18/2021. Normal mammogram 08/29/2022. Normal mammogram 09/11/2023. Chronic hip pain, bilateral X-rays of the hips and pelvis on 03/11/2023 reveals no significant arthritis of the hips. The patient was noted to have severe lower lumbar spondylosis on CT of the abdomen and pelvis which is likely causing her hip pain. Chronic low back pain with bilateral sciatica (~02/2023) acute worsening of bilateral hip pain with x-rays unremarkable of the hips and CT of the abdomen and pelvis revealing severe lower lumbar spondylosis On 03/11/2023. 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 Recheck with MRI with and without contrast in 1 year. Screening for diabetic retinopathy no diabetic retinopathy or macular edema on 01/02/2022. No retinopathy 11/27/2022. Sore throat Vitamin B12 deficiency anemia (10/09/21) level low at 277 with goal greater than 400 on 10/09/2021. Hemoglobin 13.8 on 12/25/2022. level elevated at 1593 with hemoglobin 13.6 on 12/01/2023 Yeast infection Family History Family History Grandparent Di
[2024-05-04] MEDS: AMOXICILLIN/CLAVULANATE K 875-125 MG TAB 1 TABLET PO (15:05)
[2024-05-04] MEDS: AZITHROMYCIN 250 MG TABLET 500 MG PO (15:06)
[2024-05-04 15:09] VITALS: BP 121/67; PULSE 92; RESP 16; TEMP 36.7; O2SAT 100
== END 2024-05-04 15:22 | disposition home or self-care (01) ==
PROVIDERS: Physician Assistant; Emergency Provider Emergency Medicine; PCP Family Medicine
DX: J18.9 Pneumonia, unspecified organism (principal); Z20.822 Contact with and (suspected) exposure to COVID-19; G89.29 Other chronic pain; R00.0 Tachycardia, unspecified
CPT/HCPCS: 36415; 71046; 74177; 80053; 81001; 83690; 85025; 87637; 93005; 96361; 96374; 99284; A9270; J1885; J7030; Q9967

== ENCOUNTER 2025-02-03 13:41 | Outpatient (CLI) | payer MEDICARE, SELFPAY ==
--- NOTE | ~2025-02-03 | CT_ITS ---
CT scan of the Neck Technique: 2.5 mm axial scans were obtained through the neck without IV contrast administration. Nimisha nal and sagittal reconstructions of the neck were obtained. Dose reduction technique was used on this scan by utilizing automated exposure control and iterative reconstruction technique. The dose-length product (DLP) was 373.80 mGy-cm. Clinical History: Pain and swelling under the left jawline Findings: There is no evidence of any significant cervical lymphadenopathy. Several small, nonenlarged jugulo- digastric and posterior cervical lymph nodes are noted bilaterally. Parapharyngeal spaces appear norm al bilaterally. The parotid and submandibular glands appear normal. Parapharyngeal fat preserved bila terally. The pharyngeal mucosal spaces appear normal. No soft tissue masses are seen in the neck. The thyroid gland appears normal. Images of the lung apices reveal no abnormalities. Impression: No significant abnormalities noted. Reviewed, dictated and finalized at [facility]. Impression: No significant abnormalities noted.
== END 2025-02-03 13:42 | disposition home or self-care (01) ==
LOC: MICIMG 13:41
PROVIDERS: PCP Family Medicine; Visit Provider Family Medicine
DX: M27.2 Inflammatory conditions of jaws (principal)
CPT/HCPCS: 70490

== ENCOUNTER 2025-03-14 14:55 | Outpatient (CLI) | payer MEDICARE, SELFPAY ==
--- NOTE | ~2025-03-14 | MR_ITS ---
EXAMINATION: MR abdomen wo/w con DATE: 03/14/2025 16:03 INDICATION: Pancreatic cyst on prior CT of the abdomen TECHNIQUE: Magnetic resonance imaging (MRI) of the abdomen was performed without and with 15 mL Multi reji intravenous contrast. Sequences included coronal T2-weighted SS-FSE, coronal and axial FS 2D-F IESTA, axial STIR FSE, axial T2-weighted SS-FSE, axial T2-weighted FS SS-FSE, axial diffusion-weighte d SE, axial dual-echo T1-weighted FSPGR, and axial and coronal T1-weighted LAVA. Postcontrast axial T 1-weighted LAVA images were obtained in a time course. Postcontrast coronal T1-weighted LAVA images w ere obtained. COMPARISON: CT dated 05/04/2024 and 03/11/2023 FINDINGS: Heart size is normal. No pericardial or pleural effusion. 5 mm T2 hyperintense nonenhancing hepatic c yst along the gallbladder fossa. 1.2 cm less T2 hyperintense hemangioma in segment 6 of the right hep atic lobe which demonstrates progressive enhancement on the 5 minute and 10 minute delayed images mos t consistent with a hemangioma. Gallbladder, spleen and bilateral adrenal glands are normal. Common b ile duct measures up to 4 to 5 mm diameter which is normal. No intrahepatic biliary ductal dilation. A few bilateral T2 hyperintense nonenhancing renal cysts, the largest is a 2.7 cm exophytic cyst willie ing from the lower pole the right kidney. 1.4 cm, previously 1.2 cm cystic lesions along the cephalad margin of the pancreatic body. This appears to communicate with the main pancreatic duct via an imme diately adjacent 6 mm cystic lesion which appears likely present but difficult to distinguish from th e largest cyst on the prior CT. No evident solid enhancing soft tissue component. Pancreas otherwise unremarkable with normal main pancreatic duct. Visualized portions of bowels are unremarkable. No pat hologically enlarged abdominal or upper pelvic lymphadenopathy. Mild upper lumbar dextrocurvature wit h mild spondylosis. T1 hyperintense, fat saturating hemangioma at the inferior aspect of T12. IMPRESSION: 1. Increase in size of a now 1.4 cm cystic lesion at the pancreatic body which appears to indicate wi th the main pancreatic duct and which is without enhancing soft tissue component. The differential di agnosis includes pseudocyst, intraductal papillary mucinous neoplasm (IPMN) and less likely mucinous cystic neoplasm (MCN), the less common serous cystadenoma and neuroendocrine tumor. Correlate for his tory of pancreatitis and would recommend additional 1 year follow-up pre and postcontrast MRI. Reviewed, dictated and finalized at location A. IMPRESSION: 1. Increase in size of a now 1.4 cm cystic lesion at the pancreatic body which appears to indicate with the main pancreatic duct and which is without enhancin g soft tissue component. The differential diagnosis includes pseudocyst, intrad uctal papillary mucinous neoplasm (IPMN) and less likely mucinous cystic neopla sm (MCN), the less common serous cystadenoma and neuroendocrine tumor. Correlat e for history of pancreatitis and would recommend additional 1 year follow-up p re and postcontrast MRI.
== END 2025-03-14 14:56 | disposition home or self-care (01) ==
LOC: MICIMG 14:57
PROVIDERS: PCP Family Medicine; Visit Provider Family Medicine
DX: K86.2 Cyst of pancreas (principal)
CPT/HCPCS: 74183; A9577